=== PATIENT | male | born 1975 ===

== ENCOUNTER 2018-10-05 17:46 | Emergency (ER) | payer OTHER ==
[2018-10-05 18:21] VITALS: O2SAT 100
[2018-10-05] MEDS ORDERED: Sodium Chloride 0.9% 1,000 ML IV STA (18:29)
--- NOTE | 2018-10-05 18:36 | ED PDOC ---
HPI: Abdomen Time Seen by Provider: 10/05/18 18:26 Chief Complaint (Nursing): Abdominal Pain Chief Complaint (Provider): Abdominal Pain History Per: Patient History/Exam Limitations: no limitations Onset/Duration Of Symptoms: Days (x1) Current Symptoms Are (Timing): Still Present Additional Complaint(s): 43 year old male presents to ED with a complaint of right-sided abdominal pain that radiates to right flank since this morning. Patient states, initially, his urine appeared a "darker orange" but has since resolved. He denies fever, chills, vomiting, diarrhea, nausea, or similar symptoms prior. PCP: none provided Past Medical History Reviewed: Historical Data, Nursing Documentation, Vital Signs Vital Signs: Last Vital Signs Temp 98.5 F 10/05/18 18: Pulse 59 L 10/05/18 18:19 Resp 18 10/05/18 18: BP 139/60 10/05/18 18:19 Pulse Ox 100 10/05/18 18:19 - Medical History PMH: No Chronic Diseases - Surgical History Surgical History: No Surg Hx - Family History Family History: States: Unknown Family Hx - Allergies Allergies/Adverse Reactions: Allergies Allergy/AdvReac Type Severity Reaction Status Date / Time No Known Allergies Allergy Verified 10/05/18 18:19 Review of Systems ROS Statement: Except As Marked, All Systems Reviewed And Found Negative Constitutional: Negative for: Fever, Chills Gastrointestinal: Positive for: Abdominal Pain (right-sided). Negative for: Nausea, Vomiting, Diarrhea Genitourinary Male: Positive for: Other (dark urine discoloration) Musculoskeletal: Positive for: Back Pain (right flank) Physical Exam - Reviewed Nursing Documentation Reviewed: Yes Vital Signs Reviewed: Yes - Physical Exam Appears: Positive for: No Acute Distress Head Exam: Positive for: ATRAUMATIC, NORMAL INSPECTION, NORMOCEPHALIC Skin: Positive for: Normal Color Eye Exam: Positive for: Normal appearance ENT: Positive for: Normal ENT Inspection Neck: Positive for: Normal Cardiovascular/Chest: Positive for: Regular Rate, Rhythm, Chest Non Tender Respiratory: Positive for: Normal Breath Sounds. Negative for: Respiratory Distress Gastrointestinal/Abdominal: Positive for: Soft, Tenderness (RUQ and RLQ) Back: Positive for: R CVA Tenderness. Negative for: L CVA Tenderness Extremity: Positive for: Normal ROM (upper/lower) Neurologic/Psych: Positive for: Alert, Oriented - ECG O2 Sat by Pulse Oximetry: 100 (RA) Pulse Ox Interpretation: Normal Medical Decision Making Medical Decision Making: Time: 1828 Initial Plan: * CT ABD/pelvis * Labs * Urine dipstick * IV fluids * Toradol 15mg IV * Urine culture * UA Time: 1899 --Patient endorsed to Dr. David, pending CT results, lab results, and reassessment. Scribe Attestation: Documented by Opal Frey, acting as a scribe for Triston Narvaez III, DO. Provider Scribe Attestation: All medical record entries made by the Scribe were at my direction and personally dictated by me. I have reviewed the chart and agree that the record accurately reflects my personal performance of the history, physical exam, medical decision making, and the department course for this patient. I have also personally directed, reviewed, and agree with the discharge instructions and disposition. Disposition - Clinical Impression Clinical Impression: Abdominal pain - Patient ED Disposition Is Patient to be Admitted: Transfer of Care - Disposition Disposition: Transfer of Care Disposition Time: 18:53 Condition: STABLE Forms: [employer] (Panamanian) Patient Signed Over To: Isaiah David
[2018-10-05 19:09] LABS: BASO % 0.3 % (0.0-2.0); EOS # 0.1 K/uL (0.0-0.7); EOS % 0.5 % (0.0-4.0); HEMOGLOBIN 14.4 g/dL (12.0-18.0); LYMPH # 1.3 K/uL (1.0-4.3); LYMPH % 12.3 % (20.0-40.0); MEAN CORPUSCULAR HEMOGLOBIN 31.4 pg (27.0-31.0); MEAN CORPUSCULAR HGB CONC 34.5 g/dL (33.0-37.0); MEAN PLATELET VOLUME 7.7 fl (7.2-11.7); MONO # 0.6 K/uL (0.0-0.8); MONO % 5.6 % (0.0-10.0); NEUT # 8.8 K/uL (1.8-7.0); NEUT % 81.3 % (50.0-75.0); RBC 4.6 Mil/uL (4.40-5.90); WHITE BLOOD COUNT 10.8 K/uL (4.8-10.8)
[2018-10-05 19:12] LABS: ALB/GLOB RATIO 1.4 (1.0-2.1); ALBUMIN 4.6 g/dL (3.5-5.0); ALT/SGPT 26 U/L (21-72); AST/SGOT 28 U/L (17-59); BLOOD UREA NITROGEN 13 mg/dl (9-20); CALCIUM 9.6 mg/dL (8.4-10.2); GFR NON-AFRICAN AMERICAN > 60
--- NOTE | 2018-10-05 19:56 | ED PDOC ---
- Laboratory Results Result Diagrams: 10/05/18 18:53 10/05/18 18:53 Lab Results: Total Bilirubin 1.5 mg/dl (0.2-1.3) H 10/05/18 18:53 AST 28 U/L (17-59) 10/05/18 18:53 ALT 26 U/L (21-72) 10/05/18 18:53 Alkaline Phosphatase 84 U/L (38-126) 10/05/18 18:53 Total Protein 8.0 G/DL (6.3-8.2) 10/05/18 18:53 Albumin 4.6 g/dL (3.5-5.0) 10/05/18 18:53 Globulin 3.4 gm/dL (2.2-3.9) 10/05/18 18:53 Albumin/Globulin Ratio 1.4 (1.0-2.1) 10/05/18 18:53 - ECG O2 Sat by Pulse Oximetry: 100 (RA) Medical Decision Making Medical Decision Making: Time: 1929 --Patient endorsed to provider by Dr. Narvaez, pending CT ABD/pelvis results and re-evaluation. Time: 1952 --CT ABD/pelvis FINDINGS: LUNG BASES: The lung bases appear clear. No pleural effusions are seen. LIVER: Unremarkable. GALLBLADDER AND BILE DUCTS: The gallbladder appears within normal limits. No radioopaque gallstones are seen. No biliary ductal dilatation is evident. PANCREAS: Unremarkable. SPLEEN: Unremarkable. ADRENAL GLANDS: Unremarkable. KIDNEYS, URETERS, AND BLADDER: Both kidneys are normal in size and position. An approximately 1.5 x 1.3 cm calculus is seen in the lower right renal pole. There may be an additional smaller one or 2 calculi in the very lower right renal pole. A 4.6 mm obstructing calculus is identified in the mid-distal right ureter which creates associated mild-moderate right hydronephrosis/hydroureter. The urinary bladder appeared normal in size and configuration. STOMACH AND BOWEL: Unremarkable appearance of the stomach. No evidence of bowel obstruction. No evidence suggesting enteritis or colitis. The left hemicolon is predominantly decompressed. Circumferential mucosal wall thickening is seen within the rectum suspicious for proctitis. APPENDIX: No evidence of acute appendicitis on CT examination. PERITONEUM: No free fluid. No free air. LYMPH NODES: No lymphadenopathy is evident. REPRODUCTIVE: Unremarkable as visualized. VASCULATURE: No evidence of abdominal aortic aneurysm. BONES: No aggressive appearing osseous lesion. No acute osseous pathology evident. IMPRESSION: 1. Findings compatible with proctitis. 2. A 1.5 x 1.3 cm lower pole right renal calculus is present. A couple of additional smaller calculi are seen in the very lower right renal pole. 3. A 4.6 mm obstructing calculus is identified in the mid-distal right ureter causing associated mild-moderate right hydronephrosis/hydroureter. Time: 1999 --Upon provider reevaluation, patient is medically stable, reports feeling better, and requires no further treatment in the ED at this time. Patient will be discharged home with Rx for Vicodin, Motrin, and Flomax. Provider discussed narcotic safety in great detail. Patient verbalizes understanding that pain medication is to be taken PRN pain and warned about addictive properties by provider. Advised to follow up with urologist and PCP by early next week. Counseling was provided and all questions were answered regarding diagnosis. There is agreement to discharge plan. Return if symptoms persist or worsen. Clinical Impression: Kidney stone Scribe Attestation: Documented by Opal Frey, acting as a scribe for Isaiah David MD. Provider Scribe Attestation: All medical record entries made by the Scribe were at my direction and personally dictated by me. I have reviewed the chart and agree that the record accurately reflects my personal performance of the history, physical exam, medical decision making, and the department course for this patient. I have also personally directed, reviewed, and agree with the discharge instructions and disposition. Disposition Counseled Patient/Family Regarding: Studies Performed, Diagnosis, Need For Followup - Clinical Impression Clinical Impression: Kidney stone - POA Present On Arrival: None - Disposition Referrals: Nikolas Seals MD [Medical Doctor] - Disposition: Routine/Home Disposition Time: 20:00 Condition: IMPROVED Prescriptions: Hydrocodone/Acetaminophen [Vicodin Es 7.5-300 mg Tablet] 1 each PO Q8 #15 tablet Ibuprofen [Motrin Tab] 600 mg PO Q6 #30 tab Tamsulosin [Flomax] 0.4 mg PO DAILY #10 cap Instructions: Kidney Stones in Adults, Proctitis, Opioids for Short-Term Treatment of Pain, Taking Narcotics Safely, How to Strain Your Urine Forms: [facility] (Kittitian) Print Language: KINYARWANDA
[2018-10-05 20:29] LABS: URINE BACTERIA RARE (<OCC); URINE BILIRUBIN NEGATIVE (NEGATIVE); URINE BLOOD LARGE (NEGATIVE); URINE CLARITY TURBID (Clear); URINE COLOR RED (YELLOW); URINE GLUCOSE (UA) NEG (NEGATIVE); URINE LEUKOCYTE ESTERASE NEG Leu/uL (Negative); URINE PROTEIN 100 mg/dL (NEGATIVE); URINE UROBILINOGEN 0.2-1.0 mg/dL (0.2-1.0)
[2018-10-05 21:09] VITALS: BP 125/71; PULSE 76; RESP 16; TEMP 99
--- NOTE | 2018-10-06 07:47 | CT ---
Date of service: 10/05/2018 PROCEDURE: CT Abdomen and Pelvis without intravenous contrast HISTORY: R flank and abd pain COMPARISON: None. TECHNIQUE: Technique. Contrast dose: Radiation dose: Total exam DLP = 243.55 mGy-cm. This CT exam was performed using one or more of the following dose reduction techniques: Automated exposure control, adjustment of the mA and/or kV according to patient size, and/or use of iterative reconstruction technique. FINDINGS: LOWER THORAX: Unremarkable. LIVER: Unremarkable. No gross lesion or ductal dilatation. GALLBLADDER AND BILE DUCTS: Unremarkable. PANCREAS: Unremarkable. No gross lesion or ductal dilatation. SPLEEN: Unremarkable. ADRENALS: Unremarkable. No mass. KIDNEYS AND URETERS: 1.3 centimeter right lower pole renal calculi with additional smaller right lower pole renal calculi. 4 millimeter partially obstructive calculus in the mid right ureter. VASCULATURE: Unremarkable. No aortic aneurysm. No aortic atherosclerotic calcification or mural plaque present. BOWEL: Unremarkable. No obstruction. No gross mural thickening. APPENDIX: Unremarkable. Normal appendix. PERITONEUM: Unremarkable. No free fluid. No free air. LYMPH NODES: Unremarkable. No enlarged lymph nodes. BLADDER: Unremarkable. REPRODUCTIVE: Unremarkable. BONES: No acute fracture. OTHER FINDINGS: None. IMPRESSION: 1.3 centimeter right lower pole renal calculi with additional smaller right lower pole renal calculi. 4 millimeter partially obstructive calculus in the mid right ureter.
== END 2018-10-05 20:56 | disposition home or self-care (01) ==
LOC: H.ER 17:46
DX: N20.2 Calculus of kidney with calculus of ureter (principal)
CPT/HCPCS: 74176; 80053; 81003; 85025; 87086; 96361; 96374; 99284; J1885; J7030